=== PATIENT | male | born 1995 | race Caucasian/White ===

== ENCOUNTER 2018-02-17 15:50 | Emergency (ER) | payer OTHER ==
--- NOTE | 2018-02-17 16:23 | ED ---
Psychiatric Complaint - HPI Summary HPI Summary: This patient is a 22 year old M BIBA to [facility] after being sent from his psychiatrist at [place]. He states he does not want to be here and doesnt know why he was rushed from the office at [place] to here. He says he was talking to the consular about how he was having a bad day and mentioned SI. Currently he reports that he would never do anything he has just had a hard time with school s stress. He does have auditory hallucinations that are not new to this visit. He states they say negative things to him such as when I am done with you, you wont be able to walk, there is something wrong with you, no one will hire you, kill yourself, and they call him a variety of insulting names. He began hearing these voices 6 months ago and has been taking lithium which has helped. He also takes Seroquel and recently had a dose change, 2 days ago it was increased. He has never been admitted to a mental health unit. - History Of Current Complaint Time Seen by Provider: 02/17/18 15:59 Hx Obtained From: Patient Onset/Duration: Lasting Weeks Timing: Constant Severity Initially: Moderate Severity Currently: Moderate Character: Depressed Aggravating Factor(s): Recent Stress Related History: Positive For: Prior Psychiatric Issues Has Suicidal: Reports: Thoughts. Denies: With A Plan - Allergies/Home Medications Allergies/Adverse Reactions: Allergies Allergy/AdvReac Type Severity Reaction Status Date / Time No Known Allergies Allergy Verified 02/17/18 16:36 Home Medications: Home Medications Oakvale Carbonate [Oakvale Carbonate 300 mg cap] 600 mg PO BID 02/17/18 [ History Confirmed 02/17/18] Quetiapine Fumarate 200 - 400 mg PO BID 02/17/18 [History Confirmed 02/17/18] Review of Systems Negative: Fever, Chills Negative: Erythema Positive: Other - auditory hallucinations . Negative: Sore Throat Negative: Chest Pain Negative: Shortness Of Breath, Cough Negative: Abdominal Pain, Vomiting, Nausea Negative: dysuria, hematuria Negative: Myalgia, Edema Negative: Rash Neurological: Negative - dizziness Psychological: Other - SI All Other Systems Reviewed And Are Negative: Yes Diagnostics - Laboratory Result Diagrams: 02/17/18 16:19 02/17/18 16:19 Lab Statement: Any lab studies that have been ordered have been reviewed, and results considered in the medical decision making process. Course/Dx - Course Assessment/Plan: This patient will be signed out to Dr. Guzman awaiting MHE on shift change. Discharge - Sign-Out/Discharge Documenting (check all that apply): Sign-Out Patient Signing out patient TO: Garima Guzman - Discharge Plan Referrals: Sis Sanderson, CHILDREN'S TUTOR [Primary Care Provider] - - Attestation Statements Document Initiated by Scribe: Yes Documenting Scribe: Miles Gonzalez Provider For Whom Scribe is Documenting (Include Credential): Rad Castro MD Scribe Attestation: Miles Fernandez , scribed for Rad Castro MD on 02/17/18 at 2153.
[2018-02-17 16:35] LABS: ABS Basophils 0 10^3/ul (0-0.2); ABS Eosinophils 0.1 10^3/ul (0-0.6); ABS Lymphocytes 2.1 10^3/ul (1.0-4.8); ABS Monocytes 0.7 10^3/ul (0-0.8); ABS Neutrophils 3.2 10^3/ul (1.5-7.7); ABS Nucleated RBC 0 10^3/ul; Eosinophil % 2.1 % (0-6); Hematocrit 46 % (42-52); Hemoglobin 15.8 g/dl (14.0-18.0); Lymphocyte % 33.9 % (25-47); Mean Corpuscular HGB Conc 34 g/dl (31-36); Mean Corpuscular Hemoglobin 30 pg (27-31); Mean Corpuscular Volume 87 fL (80-94); Mean Platelet Volume 7.5 um3 (7.4-10.4); Nucleated Red Blood Cells % 0.2; Platelet Count 182 10^3/ul (150-450); Red Blood Count 5.36 10^6/ul (4.00-5.40); Red Cell Distribution Width 14 % (10.5-15); White Blood Count 6.2 10^3/ul (3.5-10.8)
[2018-02-17 16:41] LABS: Urine Appearance Clear; Urine Blood Negative (Negative); Urine Color Yellow; Urine Ketones Negative (Negative); Urine Protein 1+(30 mg/dL) (Negative); Urine Red Blood Cell Trace(0-2/hpf) (Absent); Urine Specific Gravity 1.019 (1.010-1.030); Urine Urobilinogen Negative (Negative); Urine White Blood Cell Trace(0-5/hpf) (Absent)
[2018-02-17 17:28] LABS: Lithium 0.75 mmol/L (0.6-1.2)
[2018-02-17 18:23] VITALS: BP 112/83
[2018-02-17] MEDS ORDERED: QUEtiapine TAB* 100 MG PO ONE (21:53)
[2018-02-17] MEDS ORDERED: Lithium Carbonate TAB* 300 MG PO ONE (21:53)
--- NOTE | 2018-02-17 22:38 | ED ---
Progress - Progress Note Progress Note: 22:00- Received pt sign out from Dr Gloria Leroy MD due to a pending MHE The pt will be admitted voluntarily to Dr. Archie MD with a final Dx of psychosis, NOS. Course/Dx - Diagnoses Provider Diagnoses: Unspecified psychosis Discharge - Sign-Out/Discharge Documenting (check all that apply): Patient Departure - Admit Receiving patient FROM: Rad Castro - 22:00 - Discharge Plan Condition: Stable Disposition: ADMITTED TO [facility] Referrals: Sis Sanderson VASCULAR RADIOLOGIST [Primary Care Provider] - 2 Days - Attestation Statements Document Initiated by Scribe: Yes Documenting Scribe: Bianca Still Provider For Whom Scribe is Documenting (Include Credential): Dr. Thomas Painting MD Scribe Attestation: Bianca Fernandez , scribed for Dr. Thomas Painting MD on 02/18/18 at 0608.
[2018-02-18] MEDS ORDERED: Al Hydrox/Mg Hydrox/Simet LIQ* 30 ML UDC PO PRN (06:21)
[2018-02-18] MEDS ORDERED: Acetaminophen TAB* 325 MG PO PRN (06:21)
[2018-02-18] MEDS ORDERED: Lithium Carbonate TAB* 300 MG PO SCH (09:00)
[2018-02-18] MEDS ORDERED: Vitamin THERAPEUTIC TAB PO SCH (09:00)
--- NOTE | 2018-02-18 12:59 | ED ---
Progress - Progress Note Progress Note: This pt was not a sign out. Pt had a disposition to be admitted to [facility] Psych. Mental health inspector fuel hose reports after discussion with pt's mother and psychiatrist, Dr. Álvarez, pt will be discharged home. Pt will be discharged home with outpatient follow up with his psychiatrist. Course/Dx - Diagnoses Provider Diagnoses: Unspecified psychosis Discharge - Sign-Out/Discharge Documenting (check all that apply): Patient Departure - Discharge home, Post- Discharge Follow Up - post-admission follow up - Discharge Plan Condition: Stable Disposition: HOME Patient Education Materials: Depression (ED), Anxiety (ED), Psychiatric Hallucinations (ED) Referrals: Sis Sanderson CUSTOMER CARE AGENT [Primary Care Provider] - 2 Days - Attestation Statements Document Initiated by Scribe: Yes Documenting Scribe: Jadyn Drew Provider For Whom Scribe is Documenting (Include Credential): Juan Pisano MD Scribe Attestation: Jadyn Fernandez, scribed for Juan Pisano MD on 02/18/18 at 1738.
--- NOTE | 2018-02-18 14:03 | PN ---
ED Flex Patient Progress Note Date of Service: 02/18/18 Subjective: 22 y.o. single, white, male, senior, [employer] undergraduate brought in by campus police on 9.45 legal status initiated by his outpatient psychiatrist, Dr. Karina Ferguson after he voiced severe, ego-dystonic command auditory hallucinations to kill himself and could not contract for safety. I spoke with Dr. Ferguson who indicated that the patient is new to her and this was their 2nd visit together. He appeared to have considerably more anxious distress yesterday during her examination and she had concerns about his safety. She indicates that he has struggled ever since his transfer to [employer] two years ago , has very little local social support and has been functioning poorly socially and academically. She quoted him as making comments to her that he "couldn't stand it anymore" and that he was "tortured by the voices." He reportedly found them particularly distressing when driving alone in a car to visit his family on weekends. Dr. Ferguson asked Mr. Sharma if he could be safe and he responded by dejectedly placing his head in his hands and stating "I can't stand it." She states that when she broached the topic of inpatient hospitalization here at [place], he reconstituted slightly and was able to register his objection to that plan. In the ED at this time, he continues to object to being here. On exam he denies having any suicidal intention or plan and accuses Dr. Ferguson of never asking him about these. He admits the voices are troubling but that he has learned to ignore them. 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 He is requesting discharge to follow up Wednesday over the phone with his psychiatrist in [place], Dr. Froylan Manzanares. I spoke with Torsten' mother, Maty Sharma, who is friendly and supportive. She acknowledges the difficulties that Torsten has been having, but indicates that she is "100% sure that he is safe." She notes that he was in good spirits, smiling and enjoying his family one weekend ago on a family trip to [place], [place]. She and her , as evidenced by several emails that he has sent to various staff members here at the hospital, are against the idea of hospitalization and would like to come pick him up and take him home. I left a voicemail with Dr. Manzanares, who later returned my call when I was with a separate patient, and we are still attempting to connect with each other. Objective: young white male, in scrubs, appears fatigued with fair eye contact; good grooming; depressed mood with constricted affect; thought process is linear, organized with content related to desire for discharge; he denies current SI or HI; he is having command AH that are both male and female, making ego-dystonic, derogatory comments about him, including invitations to harm himself; denies VH ; insight and judgment are good given his willingness to seek outpatient care for what he clearly understands to be a mental illness. 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 He and his family are strongly opposed to this and have the right to both refuse and to receive care in a less restrictive setting, per their choice. I do not think his suicidal ideations are acute enough to warrant coerced inpatient care, however, I do see him at an elevated chronic risk of suicide, given the severity of dysphoria and AH. I am in agreement with Dr. Ferguson that his neuroleptic treatment needs to be more robust. I have recommended switch from quetiapine to risperidone to him and his family, which can be easily accommodated by Dr. Manzanares. I will speak to Dr. Manzanares when we successfully reach each other. Torsten and his mother express an understanding of this assessment and plan. Vital Signs Temp Pulse Resp BP Pulse Ox 98.9 F 81 17 112/83 100 02/17/18 17:49 02/17/18 17:49 02/17/18 17:49 02/17/18 17:49 02/17/18 17:49 Lab Results - Entire Visit 02/17/18 02/17/18 02/17/18 16:22 16:22 16:19 WBC RBC Hgb Hct MCV MCH MCHC RDW Plt Count MPV Neut % (Auto) Lymph % (Auto) [place] % (Auto) Eos % (Auto) Baso % (Auto) Absolute Neuts (auto) Absolute Lymphs (auto) Absolute Monos (auto) Absolute Eos (auto) Absolute Basos (auto) Absolute Nucleated RBC Nucleated RBC % Sodium 137 Potassium 4.2 Chloride 103 Carbon Dioxide 31 Anion Gap 3 BUN 15 Creatinine 1.21 H Est GFR ( Amer) 90.7 Est GFR (Non-Af Amer) 75.0 BUN/Creatinine Ratio 12.4 Glucose 90 Calcium 9.4 Total Bilirubin 0.60 AST 20 ALT 27 Alkaline Phosphatase 49 Total Protein 7.1 Albumin 4.6 Globulin 2.5 Albumin/Globulin Ratio 1.8 TSH 2.01 Urine Color Yellow Urine Appearance Clear Urine pH 6.0 Ur Specific Marquette 1.019 Urine Protein 1+(30 mg/dl) A Urine Ketones Negative Urine Blood Negative Urine Nitrate Negative Urine Bilirubin Negative Urine Urobilinogen Negative Ur Leukocyte Esterase Negative Urine WBC (Auto) Trace(0-5/hpf) Urine RBC (Auto) Trace(0-2/hpf) Urine Bacteria Absent Urine Glucose Negative Salicylates < 2.50 Urine Opiates Screen None detected Acetaminophen < 15 Ur Barbiturates Screen None detected Ur Phencyclidine Scrn None detected Ur Amphetamines Screen None detected U Benzodiazepines Scrn None detected Armorel 0.75 Urine Cocaine Screen None detected U Cannabinoids Screen None detected Serum Alcohol < 10 02/17/18 16:19 WBC 6.2 RBC 5.36 Hgb 15.8 Hct 46 MCV 87 MCH 30 MCHC 34 RDW 14 Plt Count 182 MPV 7.5 Neut % (Auto) 52.0 Lymph % (Auto) 33.9 Ches[place] % (Auto) 11.4 H Eos % (Auto) 2.1 Baso % (Auto) 0.6 Absolute Neuts (auto) 3.2 Absolute Lymphs (auto) 2.1 Absolute Monos (auto) 0.7 Absolute Eos (auto) 0.1 Absolute Basos (auto) 0 Absolute Nucleated RBC 0 Nucleated RBC % 0.2 Sodium Potassium Chloride Carbon Dioxide Anion Gap BUN Creatinine Est GFR ( Amer) Est GFR (Non-Af Amer) BUN/Creatinine Ratio Glucose Calcium Total Bilirubin AST ALT Alkaline Phosphatase Total Protein Albumin Globulin Albumin/Globulin Ratio TSH Urine Color Urine Appearance Urine pH Ur Specific Marquette Urine Protein Urine Ketones Urine Blood Urine Nitrate Urine Bilirubin Urine Urobilinogen Ur Leukocyte Esterase Urine WBC (Auto) Urine RBC (Auto) Urine Bacteria Urine Glucose Salicylates Urine Opiates Screen Acetaminophen Ur Barbiturates Screen Ur Phencyclidine Scrn Ur Amphetamines Screen U Benzodiazepines Scrn Armorel Urine Cocaine Screen U Cannabinoids Screen Serum Alcohol
[2018-02-18] MEDS ORDERED: QUEtiapine TAB* 100 MG PO SCH (21:00)
== END 2018-02-18 16:55 | disposition home or self-care (01) ==
LOC: ED 15:50
DX: F29 Unspecified psychosis not due to a substance or known physiological condition (principal)
CPT/HCPCS: 36415; 80053; 80178; 80307; 80320; 80329; 81003; 81015; 84443; 85025; 87086; 99285; A9270-GY; G0480